=== PATIENT | female | born 1935 | race Caucasian/White ===

== ENCOUNTER 2020-11-06 12:06 | Inpatient (IN) | payer MEDICARE, SELFPAY ==
[2020-11-06] VITALS (14 sets, daily range): BP systolic 87–150; BP diastolic 48–68; PULSE 54–60; RESP 12–20; TEMP 36.1–36.5; O2SAT 94–98; BMI 15.7
--- NOTE | ~2020-11-06 | XR_ITS ---
EXAMINATION: XR chest 1V portable DATE: 11/06/2020 13:06 INDICATION: Altered mental status. TECHNIQUE: A single frontal view of the chest was obtained. COMPARISON: Chest single view 01/09/2016, CT abdomen and pelvis 05/10/2017 FINDINGS: There is mild atelectasis at right lung base. No pleural effusion or pneumothorax. The hear t size is normal. There is a large hiatal hernia. IMPRESSION: 1. Mild atelectasis at right lung base. 2. Large hiatal hernia. Reviewed, dictated and finalized at location B.
--- NOTE | ~2020-11-06 | CT_ITS ---
EXAMINATION: CT abdomen pelvis wo con DATE: 11/06/2020 16:11 INDICATION: Leukocytosis. TECHNIQUE: Computed tomography (CT) of the abdomen and pelvis was performed without intravenous contr ast. Automated exposure control and iterative reconstruction technique were employed. The dose-length product was 253.47 mGy-cm. COMPARISON: CT abdomen and pelvis 05/10/2017 FINDINGS: The visualized portions of the lung bases demonstrate mild atelectasis. No pleural effusion . There is left atrial enlargement of the heart. There are coronary artery calcifications. No pericar dial effusion. There is a large sliding hiatal hernia. There is a 2.0 cm cyst in the liver. The liver is hyperdense, consistent with amiodarone exposure. Hyperdense material in the gallbladder may be co ntrast. The gallbladder is normal in size. The spleen, pancreas, adrenal glands, and left kidney are normal. There is a 10.4 cm cyst in right kidney. There is wall thickening of the rectosigmoid. The ap pendix is normal. There are no pathologically enlarged lymph nodes. There is no free intraperitoneal fluid. There is a left hip bipolar hemiarthroplasty. There is moderate thoracic spondylosis and sever e lumbar spondylosis. IMPRESSION: 1. Wall thickening of the rectosigmoid, consistent with colitis. 2. Large sliding hiatal hernia. Reviewed, dictated and finalized at location B.
--- NOTE | ~2020-11-06 | CT_ITS ---
EXAMINATION: CT brain wo con DATE: 11/07/2020 01:01 INDICATION: Altered mental status TECHNIQUE: Computed tomography (CT) of the head was performed without intravenous contrast. The dose- length product was 605.33 mGy-cm. Automated exposure control and iterative reconstruction technique w ere employed. COMPARISON: CT dated 01/09/2016 FINDINGS: Study limited by motion artifact. No acute intracranial hemorrhage, infarction, mass or mas s effect. Generalized brain parenchymal volume loss. There are scattered moderate periventricular and subcortical white matter changes, most likely related to small vessel ischemic disease (microangiopa thy). No ventriculomegaly or midline shift. There is intracranial atherosclerosis. IMPRESSION: 1. No acute intracranial abnormality. 2: Chronic age-related findings. Reviewed, dictated and finalized at location A.
--- NOTE | 2020-11-06 12:28 | ECG_ITS ---
Measurements Intervals [place] Rate: 59 P: [place]: 0 QRS: 42 QRSD: 102 T: 61 QT: 443 QTc: 439 Interpretive Statements SINUS RHYTHM LEFT ATRIAL ENLARGEMENT DELAYED PRECORDIAL R/S TRANSITION BORDERLINE T WAVE ABNORMALITY- HIGH LATERAL LEADS BASELINE ARTIFACT- I, II, III, AVR, AVL, AVF BORDERLINE ECG Electronically Signed On 11-06-2020 12:30:26 CDT by Yordan Zapata D.O.
--- NOTE | 2020-11-06 12:50 | ED.AMS ---
HPI - Altered Mental Status General Chief Complaint: Altered Mental Status Stated Complaint: ALTERED MS, HX OF CDIFF Time Seen by Provider: 11/06/20 12:33 Source: EMS Mode of arrival: EMS Limitations: clinical condition and dementia History of Present Illness HPI narrative: 85-year-old female From assisted living Patient is O x1 and cannot give any history Only history available from EMS is that she has a history of C. difficile, unclear how active that is, and has been eating and drinking poorly and is weak Related Data Home Medications Medication Instructions Recorded Confirmed amiodarone 200 mg PO BID 11/06/20 anastrozole 1 mg PO DAILY 11/06/20 apixaban [Eliquis] 2.5 mg PO BID 11/06/20 atorvastatin 10 mg PO DAILY 11/06/20 donepezil 5 mg PO HS 11/06/20 ketoconazole 1 applic TOPICAL BID 11/06/20 levothyroxine 50 mcg PO DAILY 11/06/20 losartan 25 mg PO DAILY 11/06/20 metoprolol tartrate 25 mg PO DAILY 11/06/20 potassium chloride [Klor-Con 10] 10 meq PO BID 11/06/20 trazodone 50 mg PO HS PRN 11/06/20 Allergies Allergy/AdvReac Type Severity Reaction Status Date / Time No Known Allergies Allergy Unverified 12/11/18 11:19 Review of Systems Review of Systems: ROS unobtainable: Yes unobtainable due to medical condition and unobtainable due to mental status Exam Const: General: cooperative and confusion Nutritional Appearance: thin Other: Elderly, frail, ill-appearing, contracted HENMT: Head: normocephalic, atraumatic, no contusions and no hematomas Ears: external ears normal General nose exam: no epistaxis Mouth: Yes dry mucous membranes Eyes: Conjunctivae: conjunctivae normal EOM: EOMs intact bilaterally Neck: Neck: normal visual inspection, supple and no JVD Resp: Effort & Inspection: normal respiratory effort Auscultation: clear to auscultation bilaterally and other (BS =) Cardio: Rate: regular rate Rhythm: regular rhythm Heart sounds: no murmurs GI: GI Palp: Yes Soft to palpation and No Guarding due to palpation present (GI) Skin: General skin exam: no rashes or lesions noted Other: She has some bruising from old IVs Extrem: General: no pedal edema Other: Contracted Course Course Emergency Course: She received fluids and antibiotics Lactic acid lab could not be obtained and was not sent CT showed a large renal cyst and some residual colitis Discussed with hospitalist for admission Vital Signs Vital signs: Vital Signs Temperature 36.5 C 11/06/20 12:06 Pulse Rate 60 11/06/20 12:06 Respiratory Rate 20 11/06/20 12:06 Blood Pressure 87/49 L 11/06/20 12:06 Pulse Oximetry 98 11/06/20 12:06 Temperature 36.5 C 11/06/20 12:06 Pulse Rate 59 L 11/06/20 16:38 Respiratory Rate 18 11/06/20 16:38 Blood Pressure 96/68 L 11/06/20 16:38 Pulse Oximetry 97 11/06/20 13:54 MDM - Altered Mental Status Lab Data Result diagrams: 11/06/20 14:27 11/06/20 14:27 Labs: Lab Results 11/06/20 11/06/20 11/06/20 Range/Units 14:27 14:27 14:27 WBC 20.3 H (4.5-10.0) K/mm3 RBC 4.42 (4.2-5.4) M/mm3 Hgb 12.9 (12.0-15.0) g/dL Hct 40.0 (37.0-47.0) % MCV 90.5 (80-100) fl MCH 29.2 (26-34) pg MCHC 32.3 (32-36) g/dl RDW 15.1 H (11.5-14.5) % Plt Count 255 (150-375) k/mm3 MPV 8.8 (7.4-10.4) fl Immature Gran % (Auto) Not Reportable Neut % (Auto) Not Reportable Lymph % (Auto) Not Reportable Cross % (Auto) Not Reportable Eos % (Auto) Not Reportable Baso % (Auto) Not Reportable Lymph # (Auto) Not Reportable Cross # (Auto) Not Reportable Eos # (Auto) Not Reportable Baso # (Auto) Not Reportable Abs Immat Gran (auto) Not Reportable Absolute Neuts (auto) Not Reportable Absolute Nucleated RBC Not Reportable Total Counted 100 Neutrophils % (Manual) 72 (46-73) % Band Neutrophils % 10 H (0-6) % Lymphocytes % (Manual)
[2020-11-06] MEDS: LACTATED RINGERS 1,000 ML 999 ML IV CONT ×3 (14:30→20:08)
[2020-11-06 14:34] LABS: Hemoglobin 12.9 g/dL (12.0-15.0); Mean Corpuscular HGB Conc 32.3 g/dl (32-36); Mean Corpuscular Hemoglobin 29.2 pg (26-34); Mean Corpuscular Volume 90.5 fl (80-100); Mean Platelet Volume 8.8 fl (7.4-10.4); Platelet Count Result 255 k/mm3 (150-375); Red Blood Count 4.42 M/mm3 (4.2-5.4); Red Cell Distribution Width 15.1 % (11.5-14.5); White Blood Count 20.3 K/mm3 (4.5-10.0)
[2020-11-06 14:48] LABS: Add Urine Microscopic? YES; Appearance Urine Cloudy (Clear); Bacteria Urine 2+ /hpf; Bilirubin Urine Negative (Negative); Blood Urine 1+ (Negative); Color Urine Amber (Yellow); Glucose Urine UA Negative (Negative); Ketones Urine Negative (Negative); Leukocyte Esterase Ur Trace LEU/UL (Negative); Mucus Urine Moderate /lpf; Nitrate Urine Negative (Negative); Protein Urine 2+ mg/dL (Negative); Specific Grav Ur 1.019 (1.001-1.035); Squamous Epithelial Cell Urine Occasional /hpf (Few); Urobilinogen Urine Negative mg/dL (<2.0); WBC Urine 31-50 /hpf
[2020-11-06 14:51] LABS: Alanine Aminotransferase 83 U/L (4-35); Albumin Level 2.4 g/dL (3.5-5.1); Alkaline Phosphatase 122 U/L (38-126); Anion Gap 2 mmol/L (8-16); Aspartate Amino Transferase 69 U/L (14-36); Bilirubin,Total 0.7 mg/dL (0.2-1.3); Blood Urea Nitrogen 36 mg/dL (7-17); Calcium 8.2 mg/dL (8.4-10.2); Carbon Dioxide 24 mmol/L (22-30); Chloride 101 mmol/L (98-107); Estimated CRCL calculation 14 ml/min; Estimated Glomerular Filt Rate 29; Glucose 123 mg/dL (65-110); Potassium 5.2 mmol/L (3.4-5.0); Sodium 127 mmol/L (137-145)
[2020-11-06 15:08] LABS: Band Neutrophils Percent 10 % (0-6); Lymphocytes Absolute Manual 2.43 K/mm3 (1.1-4.5); Monocytes Absolute Manual 1.21 K/mm3 (0.1-0.90); Monocytes Percent Manual 6 % (3-9); Neutrophils Absolute Manual 16.64 K/mm3 (1.7-7.2); Neutrophils Percent Manual 72 % (46-73); Platelet Estimate Adequate (Adequate); Total Cells Counted 100
[2020-11-06 15:09] LABS: Anisocytosis 1+ (NORMAL); Atypical Lymphocytes Present
--- NOTE | 2020-11-06 18:30 | PM.IMHP ---
H&P: HPI History of Present Illness Date/Time: 11/06/20 18:30 Chief Complaint: Altered mental status. Narrative: This is an 85-year-old female with dementia, hypertension, hypothyroidism, and paroxysmal atrial fibrillation who presented to the emergency department earlier today via EMS from [facility] for evaluation of altered mental status. The patient is not able to provide a very good history and as such a majority of the following is obtained via a review of her electronic medical records. I have not been able to get a hold of her or her power of attorney general as of this time. It is my understanding that the patient was diagnosed with C diff at the beginning of October 2020 for which she was treated with vancomycin. Since that time she has had poor oral intake and labs drawn either yesterday or today showed an increase in BUN and creatinine which prompted her to be brought in today for evaluation. She has also been more confused than usual. At the time my evaluation she seems a bit anxious and is tearful. She complains of nondescript discomfort in her lower abdomen. She does not believe that she has had a fever. She denies nausea and vomiting but tells me that she is not hungry though she is asking for a Coca-Cola. Review of Systems Review of Systems: Twelve systems were reviewed with pertinent positives and negatives as per HPI. Somewhat limited given her underlying dementia and confusion. No documented fever. She denies cold and flu symptoms. No chest pain or shortness of breath. Denies dysuria. Except as documented, all other systems were reviewed and are negative. 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 Prior to that she was living at home with her . Former smoker in her 20s. No alcohol or illicit substance abuse. Her Curly and friend Real are her emergency contacts. Code status: Full code. Sexual Orientation (if Verbalized by the Patient): . Meds Home Medications and Allergies Home Medications Medication Instructions Recorded Confirmed Type amiodarone 200 mg PO BID 11/06/20 11/06/20 History anastrozole 1 mg PO DAILY 11/06/20 11/06/20 History apixaban [Eliquis] 2.5 mg PO BID 11/06/20 11/06/20 History atorvastatin 10 mg PO DAILY 11/06/20 11/06/20 History donepezil 5 mg PO HS 11/06/20 11/06/20 History ketoconazole 1 applic TOPICAL BID 11/06/20 11/06/20 History levothyroxine 50 mcg PO DAILY 11/06/20 11/06/20 History losartan 25 mg PO DAILY 11/06/20 11/06/20 History metoprolol tartrate 25 mg PO TID 11/06/20 11/06/20 History potassium chloride [Klor-Con 10] 10 meq PO BID 11/06/20 11/06/20 History trazodone 50 mg PO HS PRN 11/06/20 11/06/20 History vancomycin 125 mg PO Q12H 11/06/20 11/06/20 History Allergies Allergy/AdvReac Type Severity Reaction Status Date / Time No Known Allergies Allergy Unverified 12/11/18 11:19 Vital Signs Vital Signs - 24 hr 11/06/20 12:06 11/06/20 12:26 11/06/20 12:32 Temperature 97.7 F Pulse Rate 60 58 L 58 L Respiratory Rate 20 12 12 Blood Pressure 87/49 L Pulse Oximetry 98 97 96 11/06/20 12:48 11/06/20 13:00 11/06/20 13:01 Temperature Pulse Rate 54 L 55 L 59 L Respiratory Rate 20 20 18 Blood Pressure 92/58 L Pulse Oximetry 96 11/06/20 13:15 11/06/20
--- NOTE | 2020-11-06 20:38 | ADMGEN ---
This patient, Lizette Kimble, was admitted to 2 Medical Room 244-. Patient/family oriented to hospital policies and general routines including ID bracelet, bed and alarms, visiting hours, pain management, procedures, bathroom and other care routines, personal items, smoking policy, room service/diet, and visiting hours. Information on how to activate the Rapid Response Team has been discussed. Patient/Family are encouraged to report perceived risks to care and to ask questions if they do not understand what they are told or what they should do.
[2020-11-07] VITALS (8 sets, daily range): BP systolic 133–144; BP diastolic 54–55; PULSE 57–75; RESP 16–18; TEMP 36.1–36.4; O2SAT 97; BMI 15.7
[2020-11-07] MEDS: FAMOTIDINE 20 MG/2 ML VIAL IV PUSH ×3 (00:08→21:23)
[2020-11-07] MEDS: FIDAXOMICIN 200 MG TABLET PO ×3 (01:22→21:24)
[2020-11-07] MEDS: DONEPEZIL HCL 5 MG TABLET PO ×2 (01:22→21:24)
[2020-11-07] MEDS: LACTATED RINGERS 1,000 ML 75 ML IV CONT (01:23)
[2020-11-07] MEDS: METOPROLOL TARTRATE 25 MG TABLET PO ×4 (01:24→16:31)
[2020-11-07] MEDS: traZODone HCL 50 MG TABLET PO ×2 (01:24→21:23)
[2020-11-07 02:13] LABS: Anion Gap 4 mmol/L (8-16); Blood Urea Nitrogen 33 mg/dL (7-17); Carbon Dioxide 19 mmol/L (22-30); Chloride 105 mmol/L (98-107); Estimated CRCL calculation 20 ml/min; Estimated Glomerular Filt Rate 43; Glucose 103 mg/dL (65-110); Potassium 4.8 mmol/L (3.4-5.0); Sodium 128 mmol/L (137-145)
[2020-11-07 05:52] LABS: Hematocrit 32.4 % (37.0-47.0); Hemoglobin 10.8 g/dL (12.0-15.0); Mean Corpuscular HGB Conc 33.3 g/dl (32-36); Mean Corpuscular Volume 86.9 fl (80-100); Mean Platelet Volume 8.4 fl (7.4-10.4); Platelet Count Result 214 k/mm3 (150-375); Red Blood Count 3.73 M/mm3 (4.2-5.4); Red Cell Distribution Width 14.9 % (11.5-14.5)
[2020-11-07] MEDS: LEVOTHYROXINE SODIUM 50 MCG TABLET PO (06:34)
[2020-11-07] MEDS: ACETAMINOPHEN 325 MG TABLET 650 MG PO ×2 (06:36→21:20)
[2020-11-07 08:29] LABS: Anion Gap 1 mmol/L (8-16); Blood Urea Nitrogen 30 mg/dL (7-17); Calcium 7.8 mg/dL (8.4-10.2); Carbon Dioxide 22 mmol/L (22-30); Chloride 104 mmol/L (98-107); Estimated CRCL calculation 21 ml/min; Estimated Glomerular Filt Rate 47; Glucose 93 mg/dL (65-110); Magnesium 1.9 mg/dL (1.6-2.3); Potassium 4.6 mmol/L (3.4-5.0); Sodium 127 mmol/L (137-145)
[2020-11-07] MEDS: ATORVASTATIN 10 MG TABLET PO (09:00)
[2020-11-07] MEDS: APIXABAN 2.5 MG TABLET PO ×2 (09:00→16:31)
[2020-11-07] MEDS: AMIODARONE HCL 200 MG TABLET PO ×2 (09:00→16:31)
[2020-11-07] MEDS: ANASTROZOLE (*CHEMO) 1 MG TABLET PO (09:00)
[2020-11-07 09:19] LABS: Band Neutrophils Percent 14 % (0-6); Monocytes Absolute Manual 0.28 K/mm3 (0.1-0.90); Monocytes Percent Manual 2 % (3-9); Neutrophils Absolute Manual 13.02 K/mm3 (1.7-7.2); Neutrophils Percent Manual 79 % (46-73); Total Cells Counted 100
[2020-11-07 09:20] LABS: Hypochromasia 1+ (NORMAL); Platelet Estimate Adequate (Adequate)
[2020-11-07] MEDS: MICONAZOLE NITRATE 2% CREAM 30 GM TUBE 1 APPLIC TOPICAL ×2 (10:22→16:31)
--- NOTE | 2020-11-07 10:28 | PCSTNOTE ---
Please refer to the Bedside Swallow Evaluation in the EMR. Please note, silent aspiration cannot be ruled out at bedside.
--- NOTE | 2020-11-07 10:31 | PM.IMPN ---
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 Blood cultures and urine cultures are pending. Patient was started on IV Rocephin for UTI and oral Fidaxomicin for C diff treatment Patient received IV fluids with hydration improvement of her blood pressure, and SHELL. White blood cell count improving. Continue monitoring with light IV fluid hydration, IV antibiotics, and further monitoring. (2) Metabolic encephalopathy: Code(s): G93.41 - Metabolic encephalopathy Status: Acute Assessment and Plan: Secondary to underlying infections Patient arrived with altered mental status with underlying dementia. She has improved with IV fluids and antibiotics. Still demented at this time but mostly back to her baseline. Continue monitoring. (3) SHELL (acute kidney injury): Code(s): N17.9 - Acute kidney failure, unspecified Status: Acute Assessment and Plan: Patient's creatinine on arrival was 1.7. She received IV fluid hydration with improvement to 1.1 today. We have no baseline creatinine to go off of. Continue light IV fluid hydration and continue monitoring her renal function and electrolytes. (4) Colitis: Code(s): K52.9 - Noninfective gastroenteritis and colitis, unspecified Status: Acute Assessment and Plan: Recently diagnosed with C diff according to documentation that accompanied the patient. Completed vancomycin treatment. Patient continues have evidence of colitis with a high white blood cell will start fidaxomicin. White blood cell count improved today. Continue Fidaxomicin for 10 days total for recurrent C diff infection after PO vancomycin continue monitoring. The patient was placed in isolation with seat precautions. (5) Cyst of right kidney: Code(s): N28.1 - Cyst of kidney, acquired Status: Acute Assessment and Plan: 10.4 cm cyst noted in the right kidney. Will need to follow-up with primary care provider for further evaluation. (6) Dehydration: Code(s): E86.0 - Dehydration Status: Acute Assessment and Plan: Secondary to poor oral intake and underlying infection. Continue light IV fluid hydration with improvement of her creatinine and dehydration. (7) Abnormal urinalysis: Code(s): R82.90 - Unspecified abnormal findings in urine Status: Acute Assessment and Plan: Patient was altered when she came in. Her urinalysis was very suspicious for a urinary tract infection with trace leukocyte esterase, WBCs 30 1-50, 2+ urine bacteria. Will continue IV Rocephin at this time until urine cultures come back. At the time I can discontinue antibiotics verses deescalate if needed. (8) Hypertension: Code(s): I10 - Essential (primary) hypertension Status: Acute Assessment and Plan: Blood pressure much improved this morning after IV fluid hydration. 141/55. Continue light IV fluid hydration continue home medications. (9) Hypothyroidism: Code(s): E03.9 - Hypothyroidism, unspecified Status: Acute Assessment and Plan: TSH is normal. Continue levothyroxine. (10) Paroxysmal atrial fibrillation: Code(s): I48.0 - Paroxysmal atrial fibrillation Status: Acute Assessment and Plan: Currently in a sinus rhythm. C
[2020-11-07] MEDS: LACTATED RINGERS 1,000 ML 40 ML IV CONT (14:54)
[2020-11-08 04:50] VITALS: BP 130/71; PULSE 98; RESP 20; TEMP 36.4; O2SAT 98
[2020-11-08] MEDS: LEVOTHYROXINE SODIUM 50 MCG TABLET PO (05:39)
[2020-11-08] MEDS: ACETAMINOPHEN 325 MG TABLET 650 MG PO ×2 (05:39→14:20)
[2020-11-08 06:15] LABS: Hematocrit 37.4 % (37.0-47.0); Hemoglobin 11.6 g/dL (12.0-15.0); Mean Corpuscular Hemoglobin 28.2 pg (26-34); Mean Corpuscular Volume 90.8 fl (80-100); Mean Platelet Volume 8.7 fl (7.4-10.4); Platelet Count Result 223 k/mm3 (150-375); Red Blood Count 4.12 M/mm3 (4.2-5.4); Red Cell Distribution Width 15.2 % (11.5-14.5); White Blood Count 10.4 K/mm3 (4.5-10.0)
[2020-11-08 06:33] LABS: Alanine Aminotransferase 65 U/L (4-35); Alkaline Phosphatase 105 U/L (38-126); Anion Gap 5 mmol/L (8-16); Aspartate Amino Transferase 65 U/L (14-36); Bilirubin,Total 0.7 mg/dL (0.2-1.3); Blood Urea Nitrogen 25 mg/dL (7-17); Calcium 7.6 mg/dL (8.4-10.2); Carbon Dioxide 22 mmol/L (22-30); Chloride 99 mmol/L (98-107); Estimated CRCL calculation 28 ml/min; Estimated Glomerular Filt Rate > 60; Glucose 73 mg/dL (65-110); Potassium 3.9 mmol/L (3.4-5.0); Sodium 126 mmol/L (137-145)
[2020-11-08 07:44] LABS: Band Neutrophils Percent 6 % (0-6); Lymphocytes Absolute Manual 0.72 K/mm3 (1.1-4.5); Monocytes Absolute Manual 0.31 K/mm3 (0.1-0.90); Monocytes Percent Manual 3 % (3-9); Neutrophils Absolute Manual 9.36 K/mm3 (1.7-7.2); Neutrophils Percent Manual 84 % (46-73); Total Cells Counted 100
[2020-11-08 07:59] LABS: Platelet Estimate Adequate (Adequate); Poikilocytosis 1+ (NORMAL)
[2020-11-08] MEDS: FIDAXOMICIN 200 MG TABLET PO ×2 (08:52→21:49)
[2020-11-08] MEDS: ATORVASTATIN 10 MG TABLET PO (08:52)
[2020-11-08] MEDS: METOPROLOL TARTRATE 25 MG TABLET PO ×3 (08:52→18:10)
[2020-11-08] MEDS: APIXABAN 2.5 MG TABLET PO ×2 (08:52→18:10)
[2020-11-08] MEDS: AMIODARONE HCL 200 MG TABLET PO ×2 (08:53→18:10)
[2020-11-08] MEDS: FAMOTIDINE 20 MG/2 ML VIAL IV PUSH ×2 (08:53→21:49)
[2020-11-08] MEDS: ANASTROZOLE (*CHEMO) 1 MG TABLET PO (08:53)
[2020-11-08] MEDS: MICONAZOLE NITRATE 2% CREAM 30 GM TUBE 1 APPLIC TOPICAL ×2 (08:53→18:11)
[2020-11-08 14:00] VITALS: BP 106/46; PULSE 63; RESP 14; TEMP 36.6; O2SAT 94
--- NOTE | 2020-11-08 15:32 | PM.IMPN ---
Progress Note: A&P Assessment and Plan (1) Sepsis: Code(s): A41.9 - Sepsis, unspecified organism Status: Acute Assessment and Plan: Family talking with Care Coordination about Hospice Option. Patient meets criteria for sepsis with hypotension, leukocytosis, SHELL in the setting of recurrent C diff colitis and urinary tract infection. Blood cultures and urine cultures are pending. Patient was started on IV Rocephin for UTI and oral Fidaxomicin for C diff treatment Patient received IV fluids with hydration improvement of her blood pressure, and SHELL. White blood cell count improving. Continue monitoring with light IV fluid hydration, IV antibiotics, and further monitoring. (2) Metabolic encephalopathy: Code(s): G93.41 - Metabolic encephalopathy Status: Acute Assessment and Plan: Secondary to underlying infections Patient arrived with altered mental status with underlying dementia. She has improved with IV fluids and antibiotics. Still demented at this time but mostly back to her baseline. Continue monitoring. (3) SHELL (acute kidney injury): Code(s): N17.9 - Acute kidney failure, unspecified Status: Acute Assessment and Plan: Patient's creatinine on arrival was 1.7. She received IV fluid hydration with improvement to 0.8 today. We have no baseline creatinine to go off of. Continue light IV fluid hydration and continue monitoring her renal function and electrolytes. (4) Colitis: Code(s): K52.9 - Noninfective gastroenteritis and colitis, unspecified Status: Acute Assessment and Plan: Recently diagnosed with C diff according to documentation that accompanied the patient. Completed vancomycin treatment. Patient continues have evidence of colitis with a high white blood cell will start fidaxomicin. White blood cell count improved today. Continue Fidaxomicin for 10 days total for recurrent C diff infection after PO vancomycin continue monitoring. The patient was placed in isolation with seat precautions. (5) Cyst of right kidney: Code(s): N28.1 - Cyst of kidney, acquired Status: Acute Assessment and Plan: 10.4 cm cyst noted in the right kidney. Will need to follow-up with primary care provider for further evaluation. (6) Dehydration: Code(s): E86.0 - Dehydration Status: Acute Assessment and Plan: Secondary to poor oral intake and underlying infection. Continue light IV fluid hydration with improvement of her creatinine and dehydration. (7) Abnormal urinalysis: Code(s): R82.90 - Unspecified abnormal findings in urine Status: Acute Assessment and Plan: Patient was altered when she came in. Her urinalysis was very suspicious for a urinary tract infection with trace leukocyte esterase, WBCs 30 1-50, 2+ urine bacteria. Will continue IV Rocephin at this time until urine cultures come back. At the time I can discontinue antibiotics verses deescalate if needed. (8) Hypertension: Code(s): I10 - Essential (primary) hypertension Status: Acute Assessment and Plan: Blood pressure much improved this morning after IV fluid hydration. BP stable. Continue light IV fluid hydration continue home medications. (9) Hypothyroidism: Code(s): E03.9 - Hypothyroidism, unspecified Status: Acute Assessment and Plan: TSH is normal. Continue levothyroxine. (10) Paroxysmal atrial fibrillation: Code(s): I48.0 - Paroxysmal atrial fibrillation Sta
[2020-11-08 18:09] VITALS: BP 107/50; PULSE 58
[2020-11-08] MEDS: LACTATED RINGERS 1,000 ML 40 ML IV CONT (18:45)
[2020-11-08] MEDS: DONEPEZIL HCL 5 MG TABLET PO (21:48)
[2020-11-08 21:57] VITALS: BP 134/54; PULSE 78; RESP 16; TEMP 36.4; O2SAT 96
[2020-11-09] VITALS (8 sets, daily range): BP systolic 106–127; BP diastolic 45–70; PULSE 59–76; RESP 16–18; TEMP 36.2–36.6; O2SAT 58–98
[2020-11-09] MEDS: LEVOTHYROXINE SODIUM 50 MCG TABLET PO (05:54)
[2020-11-09] MEDS: ACETAMINOPHEN 325 MG TABLET 650 MG PO ×2 (09:05→20:32)
[2020-11-09] MEDS: AMIODARONE HCL 200 MG TABLET PO ×2 (09:05→17:34)
[2020-11-09] MEDS: ATORVASTATIN 10 MG TABLET PO (09:05)
[2020-11-09] MEDS: APIXABAN 2.5 MG TABLET PO ×2 (09:05→17:35)
[2020-11-09] MEDS: MICONAZOLE NITRATE 2% CREAM 30 GM TUBE 1 APPLIC TOPICAL ×2 (09:06→17:35)
[2020-11-09] MEDS: METOPROLOL TARTRATE 25 MG TABLET PO ×3 (09:06→17:35)
[2020-11-09] MEDS: ANASTROZOLE (*CHEMO) 1 MG TABLET PO (09:06)
[2020-11-09] MEDS: FAMOTIDINE 20 MG/2 ML VIAL IV PUSH ×2 (09:06→20:32)
[2020-11-09] MEDS: FIDAXOMICIN 200 MG TABLET PO ×2 (09:06→20:32)
--- NOTE | 2020-11-09 10:11 | PCPTNOTE ---
Attempted PT eval. Pt refused due to L hip pain. Uriel WHITE aware. Will try again tomorrow.
--- NOTE | 2020-11-09 11:11 | PM.IMPN ---
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 Blood cultures x1 shows no growth at this time. Urine cultures growing >100K Klebsiella Pneumoniae, pending sensitivity report. 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 White blood cell count improving. Continue monitoring with light IV fluid hydration, IV antibiotics, and further monitoring. (2) Metabolic encephalopathy: Code(s): G93.41 - Metabolic encephalopathy Status: Acute Assessment and Plan: Secondary to underlying infections Patient arrived with altered mental status with underlying dementia. She has improved with IV fluids and antibiotics. Believed to be back at her baseline. Continue monitoring. (3) SHELL (acute kidney injury): Code(s): N17.9 - Acute kidney failure, unspecified Status: Acute Assessment and Plan: Patient's creatinine on arrival was 1.7. She received IV fluid hydration with improvement to 0.8 yesterday. Will recheck labs in the morning. Will D/c fluids at this time. We have no baseline creatinine to go off of. Continue monitoring her renal function and electrolytes. (4) Colitis: Code(s): K52.9 - Noninfective gastroenteritis and colitis, unspecified Status: Acute Assessment and Plan: Recently diagnosed with C diff according to documentation that accompanied the patient. Completed vancomycin treatment. Patient continues have evidence of colitis with a high white blood cell will start fidaxomicin. White blood cell count improved today. Continue Fidaxomicin for 10 days total for recurrent C diff infection after PO vancomycin continue monitoring. The patient was placed in isolation with seat precautions. (5) Cyst of right kidney: Code(s): N28.1 - Cyst of kidney, acquired Status: Acute Assessment and Plan: 10.4 cm cyst noted in the right kidney. Will need to follow-up with primary care provider for further evaluation. (6) Dehydration: Code(s): E86.0 - Dehydration Status: Acute Assessment and Plan: Secondary to poor oral intake and underlying infection. Will D/c IV fluids. Appears well hydrated Continue supplements and help with feedings. Continue monitoring her creatinine and prevent dehydration. (7) Abnormal urinalysis: Code(s): R82.90 - Unspecified abnormal findings in urine Status: Acute Assessment and Plan: Patient was altered when she came in. Urine growing Klebsiella Pneumoniae Will continue IV Rocephin at this time until urine cultures come back. At the time I can discontinue antibiotics verses deescalate if needed. (8) Hypertension: Code(s): I10 - Essential (primary) hypertension Status: Acute Assessment and Plan: Blood pressure much improved this morning after IV fluid hydration. BP stable. Continue light IV fluid hydration continue home medications. (9) Hypothyroidism: Code(s): E03.9 - Hypothyroidism, unspecified Status: Acute Assessment and Plan: TSH is normal. Continue levothyroxine. (10) Paroxysmal atrial fibrillation: Code(s): I48.0 - Paroxysmal atrial fibrillation
[2020-11-09] MEDS: DONEPEZIL HCL 5 MG TABLET PO (20:32)
[2020-11-09] MEDS: traZODone HCL 50 MG TABLET PO (20:32)
[2020-11-10 05:13] VITALS: BP 125/67; PULSE 58; RESP 16; TEMP 36.5; O2SAT 95
[2020-11-10 05:58] LABS: Hematocrit 35.8 % (37.0-47.0); Hemoglobin 11.7 g/dL (12.0-15.0); Mean Corpuscular HGB Conc 32.7 g/dl (32-36); Mean Corpuscular Hemoglobin 29.1 pg (26-34); Mean Corpuscular Volume 89.1 fl (80-100); Mean Platelet Volume 8.4 fl (7.4-10.4); Platelet Count Result 232 k/mm3 (150-375); Red Blood Count 4.02 M/mm3 (4.2-5.4); Red Cell Distribution Width 14.8 % (11.5-14.5); White Blood Count 11.7 K/mm3 (4.5-10.0)
[2020-11-10] MEDS: LEVOTHYROXINE SODIUM 50 MCG TABLET PO (06:11)
[2020-11-10 06:29] LABS: Anion Gap 3 mmol/L (8-16); Blood Urea Nitrogen 20 mg/dL (7-17); Calcium 7.4 mg/dL (8.4-10.2); Carbon Dioxide 26 mmol/L (22-30); Chloride 99 mmol/L (98-107); Estimated CRCL calculation 29 ml/min; Estimated Glomerular Filt Rate > 60; Glucose 81 mg/dL (65-110); Sodium 128 mmol/L (137-145)
--- NOTE | 2020-11-10 08:30 | PCPTNOTE ---
Attempted PT eval. RN states family is meeting w/ Hospice today. Will hold awaiting family's decision.
[2020-11-10 08:37] VITALS: PULSE 68
[2020-11-10] MEDS: ATORVASTATIN 10 MG TABLET PO (08:37)
[2020-11-10] MEDS: FIDAXOMICIN 200 MG TABLET PO ×2 (08:37→20:21)
[2020-11-10] MEDS: METOPROLOL TARTRATE 25 MG TABLET PO ×3 (08:37→17:05)
[2020-11-10] MEDS: FAMOTIDINE 20 MG/2 ML VIAL IV PUSH ×2 (08:37→20:21)
[2020-11-10] MEDS: APIXABAN 2.5 MG TABLET PO ×2 (08:37→17:05)
[2020-11-10] MEDS: AMIODARONE HCL 200 MG TABLET PO ×2 (08:37→17:05)
[2020-11-10] MEDS: ANASTROZOLE (*CHEMO) 1 MG TABLET PO (08:38)
[2020-11-10] MEDS: MICONAZOLE NITRATE 2% CREAM 30 GM TUBE 1 APPLIC TOPICAL ×2 (08:38→17:05)
[2020-11-10] MEDS: NITROFURANTOIN MONOHYD MACROCR 100 MG CAP PO ×2 (09:42→20:21)
--- NOTE | 2020-11-10 11:34 | PCNFU ---
Nutrition Follow-Up Complete: Inadequate Oral intake as related to Delirium as evidenced by poor po intake reported. Goal: Meet estimated nutritional needs Limited progressing towards goal. We will continue current goal. Pt current nutrition is Minced and Moist Level 5 with Mildly Thick liquids, Level 2. Last recorded weight is 41.7 kg, up from 40.5 kg on admit. Bowel Motility:+BM reported 11/10 Labs Reviewed:BUN 20,K 3.0,Na 128, Hct 35.8,Hgb 11.7 Meds Noted:KCL/D5W, Rocephin,Eliquis,Arimidex,Lipitor,Synthroid,Lopressor,Dificid. Additional Notes: Nutrition follow up. Patient oral intake intake: refused-10% of meals. Nursing reporting family is meeting with hospice today. Diet supplements do remain for additional caloric needs of Ensure compact BID and [place]ker BID. Wounds: deep tissue-coccyx, left buttock-deep tissue. Agree with diet orders. Monitoring: Will monitor every 3 days.
[2020-11-10 13:50] VITALS: PULSE 68
[2020-11-10 15:20] VITALS: BP 158/68; PULSE 83; RESP 14; TEMP 36.8; O2SAT 100
[2020-11-10] MEDS: metroNIDAZOLE 500 MG/ISO 100ML 500 MG/100 ML BAG 100 MG IVPB ×2 (15:46→22:54)
[2020-11-10] MEDS: SACCHAROMYCES BOULARDII 250 MG CAPSULE PO ×2 (15:47→20:21)
--- NOTE | 2020-11-10 16:00 | PCPTNOTE ---
DC'd PT as pt is to be discharged to Hospice.
--- NOTE | 2020-11-10 17:04 | PM.IMPN ---
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 Blood cultures x1 shows no growth at this time. Urine cultures growing >100K Klebsiella Pneumoniae, pending sensitivity report. 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 White blood cell count went up today. nurse tells me she continues to have multiple bowel movements throughout the day. I will add IV metronidazole (#1) to her Fidaxomicin Continue monitoring with light IV fluid hydration, IV antibiotics, and further monitoring. (2) Metabolic encephalopathy: Code(s): G93.41 - Metabolic encephalopathy Status: Acute Assessment and Plan: Secondary to underlying infections Patient arrived with altered mental status with underlying dementia. She has improved with IV fluids and antibiotics. Believed to be back at her baseline. Continue monitoring. (3) SHELL (acute kidney injury): Code(s): N17.9 - Acute kidney failure, unspecified Status: Acute Assessment and Plan: Patient's creatinine on arrival was 1.7. She received IV fluid hydration with improvement to 0.8 yesterday. Creatinine 0.8, BUN 20. Stable. We have no baseline creatinine to go off of. Continue monitoring her renal function and electrolytes. (4) Colitis: Code(s): K52.9 - Noninfective gastroenteritis and colitis, unspecified Status: Acute Assessment and Plan: Recently diagnosed with C diff according to documentation that accompanied the patient. Completed vancomycin treatment. Patient continues have evidence of colitis with a high white blood cell will start fidaxomicin. White blood cell count improved today. Continue Fidaxomicin for 10 days total for recurrent C diff infection after PO vancomycin continue monitoring. The patient was placed in isolation with seat precautions. (5) Cyst of right kidney: Code(s): N28.1 - Cyst of kidney, acquired Status: Acute Assessment and Plan: 10.4 cm cyst noted in the right kidney. Will need to follow-up with primary care provider for further evaluation. (6) Dehydration: Code(s): E86.0 - Dehydration Status: Acute Assessment and Plan: Secondary to poor oral intake and underlying infection. Will D/c IV fluids. Appears well hydrated Continue supplements and help with feedings. Continue monitoring her creatinine and prevent dehydration. (7) Abnormal urinalysis: Code(s): R82.90 - Unspecified abnormal findings in urine Status: Acute Assessment and Plan: Patient was altered when she came in. Urine growing Klebsiella Pneumoniae Will continue IV Rocephin at this time until urine cultures come back. At the time I can discontinue antibiotics verses deescalate if needed. (8) Hypertension: Code(s): I10 - Essential (primary) hypertension Status: Acute Assessment and Plan: Blood pressure much improved this morning after IV fluid hydration. BP stable. Continue light IV fluid hydration continue home medications. (9) Hypothyroidism: Code(s): E03.9 - Hypothyroidism, unspecified Status: Acute Assessment and Plan: TSH is normal. Continue levothyroxine.
[2020-11-10 17:05] VITALS: PULSE 83
[2020-11-10] MEDS: POTASSIUM CHLORIDE 20 MEQ TABLET 40 MEQ PO (17:10)
[2020-11-10] MEDS: DONEPEZIL HCL 5 MG TABLET PO (20:21)
[2020-11-10] MEDS: traZODone HCL 50 MG TABLET PO (20:21)
[2020-11-10] MEDS: ACETAMINOPHEN 325 MG TABLET 650 MG PO (20:22)
[2020-11-10 21:20] VITALS: BP 117/67; PULSE 55; RESP 16; TEMP 36.6; O2SAT 99
[2020-11-11 06:00] VITALS: BP 112/59; PULSE 57; RESP 16; TEMP 36.7; O2SAT 99
[2020-11-11 06:00] LABS: Hematocrit 36.2 % (37.0-47.0); Hemoglobin 11.9 g/dL (12.0-15.0); Mean Corpuscular HGB Conc 32.9 g/dl (32-36); Mean Corpuscular Hemoglobin 28.7 pg (26-34); Mean Corpuscular Volume 87.4 fl (80-100); Mean Platelet Volume 8.3 fl (7.4-10.4); Platelet Count Result 240 k/mm3 (150-375); Red Blood Count 4.14 M/mm3 (4.2-5.4); Red Cell Distribution Width 14.9 % (11.5-14.5); White Blood Count 13.6 K/mm3 (4.5-10.0)
[2020-11-11] MEDS: metroNIDAZOLE 500 MG/ISO 100ML 500 MG/100 ML BAG 100 MG IVPB (06:04)
[2020-11-11] MEDS: LEVOTHYROXINE SODIUM 50 MCG TABLET PO (06:05)
[2020-11-11 06:09] LABS: Anion Gap -1 mmol/L (8-16); Blood Urea Nitrogen 25 mg/dL (7-17); Calcium 7.5 mg/dL (8.4-10.2); Carbon Dioxide 25 mmol/L (22-30); Chloride 107 mmol/L (98-107); Estimated CRCL calculation 33 ml/min; Estimated Glomerular Filt Rate > 60; Glucose 103 mg/dL (65-110); Magnesium 1.9 mg/dL (1.6-2.3); Potassium 4.1 mmol/L (3.4-5.0); Sodium 131 mmol/L (137-145)
[2020-11-11] MEDS: SACCHAROMYCES BOULARDII 250 MG CAPSULE PO ×2 (09:02→19:35)
[2020-11-11] MEDS: FIDAXOMICIN 200 MG TABLET PO (09:02)
[2020-11-11] MEDS: FAMOTIDINE 20 MG/2 ML VIAL IV PUSH (09:02)
[2020-11-11 09:03] VITALS: PULSE 58
[2020-11-11] MEDS: ATORVASTATIN 10 MG TABLET PO (09:03)
[2020-11-11] MEDS: METOPROLOL TARTRATE 25 MG TABLET PO ×3 (09:03→19:33)
[2020-11-11] MEDS: APIXABAN 2.5 MG TABLET PO ×2 (09:03→19:33)
[2020-11-11] MEDS: ANASTROZOLE (*CHEMO) 1 MG TABLET PO (09:06)
[2020-11-11] MEDS: NITROFURANTOIN MONOHYD MACROCR 100 MG CAP PO (09:06)
[2020-11-11] MEDS: MICONAZOLE NITRATE 2% CREAM 30 GM TUBE 1 APPLIC TOPICAL ×2 (09:07→19:34)
[2020-11-11 11:15] LABS: Band Neutrophils Percent 2 % (0-6); Eosinophils Absolute Manual 0.13 K/mm3 (0.02-0.5); Eosinophils Percent Manual 1 % (0-4); Lymphocytes Absolute Manual 0.68 K/mm3 (1.1-4.5); Monocytes Absolute Manual 0.13 K/mm3 (0.1-0.90); Monocytes Percent Manual 1 % (3-9); Neutrophils Absolute Manual 12.64 K/mm3 (1.7-7.2); Neutrophils Percent Manual 91 % (46-73); Total Cells Counted 100
[2020-11-11 11:16] LABS: Platelet Estimate Adequate (Adequate)
--- NOTE | 2020-11-11 11:33 | P.DS_ITS ---
DS: Admitting Diagnosis Admitting Diagnosis C. 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 * Blood cultures x1 shows no growth at this time. * Urine cultures growing >100K Klebsiella Pneumoniae, pending sensitivity report. Continue on IV Rocephin for UTI * +Recurrent C. diff on oral Fidaxomicin * Will D/c IV fluids at this time, appears slightly edematous, partially from immobility. * White blood cell count went up today. * nurse tells me she continues to have multiple bowel movements throughout the day. I will add IV metronidazole (#1) to her Fidaxomicin Continue monitoring with light IV fluid hydration, IV antibiotics, and further monitoring. (2) Metabolic encephalopathy: Code(s): G93.41 - Metabolic encephalopathy Status: Acute Assessment and Plan: Secondary to underlying infections * Patient arrived with altered mental status with underlying dementia. She has improved with IV fluids and antibiotics. * Believed to be back at her baseline. Continue monitoring. (3) SHELL (acute kidney injury): Code(s): N17.9 - Acute kidney failure, unspecified Status: Acute Assessment and Plan: Patient's creatinine on arrival was 1.7. She received IV fluid hydration with improvement to 0.8 yesterday. * Creatinine 0.8, BUN 20. Stable. We have no baseline creatinine to go off of. Continue monitoring her renal function and electrolytes. (4) Colitis: Code(s): K52.9 - Noninfective gastroenteritis and colitis, unspecified Status: Acute Assessment and Plan: Recently diagnosed with C diff according to documentation that accompanied the patient. Completed vancomycin treatment. Patient continues have evidence of colitis with a high white blood cell will start fidaxomicin. * White blood cell count improved today. * Continue Fidaxomicin for 10 days total for recurrent C diff infection after PO vancomycin continue monitoring. The patient was placed in isolation with seat precautions. (5) Cyst of right kidney: Code(s): N28.1 - Cyst of kidney, acquired Status: Acute Assessment and Plan: 10.4 cm cyst noted in the right kidney. Will need to follow-up with primary care provider for further evaluation. (6) Dehydration: Code(s): E86.0 - Dehydration Status: Acute Assessment and Plan: Secondary to poor oral intake and underlying infection. * Will D/c IV fluids. Appears well hydrated * Continue supplements and help with feedings. Continue monitoring her creatinine and prevent dehydration. (7) Abnormal urinalysis: Code(s): R82.90 - Unspecified abnormal findings in urine Status: Acute Assessment and Plan: Patient was altered when she came in. * Urine growing Klebsiella Pneumoniae * Will continue IV Rocephin at this time until urine cultures come back. At the time I can discontinue antibiotics verses deescalate if needed. (8) Hypertension: Cod
[2020-11-11 12:43] VITALS: PULSE 108
[2020-11-11 19:33] VITALS: PULSE 78
[2020-11-11 22:00] VITALS: BP 123/74; PULSE 62; RESP 18; TEMP 36.2; O2SAT 100
== END 2020-11-11 23:00 | disposition hospice, inpatient (51) | DRG 871 ==
LOC: ANHED 17:33 → ANH2MED 19:37
PROVIDERS: Physician Assistant; Admitting Provider Internal Medicine Critical Care Medicine; Emergency Provider Emergency Medicine; PCP Family Medicine; Visit Provider Physician Assistant
DX: A41.9 Sepsis, unspecified organism (principal); G93.41 Metabolic encephalopathy; N17.9 Acute kidney failure, unspecified; N39.0 Urinary tract infection, site not specified; A04.71 Enterocolitis due to Clostridium difficile, recurrent; E87.1 Hypo-osmolality and hyponatremia; E46 Unspecified protein-calorie malnutrition; Z68.1 Body mass index [BMI] 19.9 or less, adult; B96.1 Klebsiella pneumoniae [K. pneumoniae] as the cause of diseases classified elsewhere; N28.1 Cyst of kidney, acquired; E86.0 Dehydration; I10 Essential (primary) hypertension; E03.9 Hypothyroidism, unspecified; I48.0 Paroxysmal atrial fibrillation; F03.90 Unspecified dementia, unspecified severity, without behavioral disturbance, psychotic disturbance, mood disturbance, and anxiety; R79.89 Other specified abnormal findings of blood chemistry; E87.6 Hypokalemia; Z85.3 Personal history of malignant neoplasm of breast; Z86.73 Personal history of transient ischemic attack (TIA), and cerebral infarction without residual deficits; Z79.01 Long term (current) use of anticoagulants; Z96.642 Presence of left artificial hip joint
CPT/HCPCS: 36415; 51701; 70450; 71045; 74176; 80048; 80053; 81001; 83605; 83735; 84443; 85025; 85027; 87040; 87077; 87086; 87088; 87186; 87324; 92610; 93005; 97165; A9270; J0696; J3480; J7120